=== PATIENT | male | born 1975 | race Caucasian/White ===

== ENCOUNTER 2018-04-16 05:18 | Emergency (ER) | payer OTHER ==
[~2018-04-16] VITALS: Ht 182.9 cm; Wt 95.0 kg
[2018-04-16] MEDS ORDERED: CYCLOBENZAPRINE HCL 10 MG TABLET PO ONE (06:15)
[2018-04-16] MEDS ORDERED: MORPHINE SULFATE 10 MG/ML SYRINGE IVP ONE (06:15)
[2018-04-16] MEDS ORDERED: KETOROLAC TROMETHAMINE 30 MG/ML VIAL IVP ONE (06:15)
[2018-04-16] MEDS ORDERED: LIDOCAINE HCL 5% TRANSDERMAL PATCH TD ONE (06:15)
[2018-04-16 06:40] VITALS: BP 133/70
== END 2018-04-16 07:56 | disposition home or self-care (01) ==
LOC: EMS 05:20
DX: M54.5 Low back pain (principal); F17.210 Nicotine dependence, cigarettes, uncomplicated
CPT/HCPCS: 96374; 96375; 99284; 99406; J1885; J2270